=== PATIENT | female | born 1990 | race Two or more races ===

== ENCOUNTER 2017-10-19 18:16 | Emergency (ER) | payer OTHER ==
[2017-10-19 18:26] VITALS: BP 167/91; RESP 20; O2SAT 98
[2017-10-19 18:45] LABS: HCG,QUALITATIVE URINE NEGATIVE (NEGATIVE)
[2017-10-19] MEDS ORDERED: cefTRIAXone (Rocephin) 250 mg Inj IM STA (18:50)
[2017-10-19 18:52] LABS: SQUAMOUS EPITHIAL 1 /hpf (0-5); URINE BACTERIA OCC (<OCC); URINE BILIRUBIN NEGATIVE (NEGATIVE); URINE BLOOD 2+ (NEGATIVE); URINE CLARITY Clear (Clear); URINE COLOR Yellow (YELLOW); URINE GLUCOSE (UA) NORMAL (Normal); URINE LEUKOCYTE ESTERASE TRACE Leu/uL (Negative); URINE NITRATE NEGATIVE (NEGATIVE); URINE PROTEIN 1+ mg/dL (NEGATIVE); URINE UROBILINOGEN NORMAL mg/dL (0.2-1.0)
--- NOTE | 2017-10-19 19:29 | C.PDOC ---
History Of Present Illness 27 year old female presents to the ER complaining of vaginal discomfort which has been present for the past 2 weeks. Patient states that she has whitish to yellowish discharge. She reports that the symptoms feel similar to the symptoms she experienced when she had chlamydia in the past. Patient is concerned for STDS. Time Seen by Provider: 10/19/17 18:36 Chief Complaint (Nursing): Female Genitourinary History Per: Patient History/Exam Limitations: no limitations Onset/Duration Of Symptoms: Days Current Symptoms Are (Timing): Still Present Severity: Moderate Past Medical History Reviewed: Historical Data, Nursing Documentation, Vital Signs Vital Signs: Last Vital Signs Temp 98 F 10/19/17 20:48 Pulse 78 10/19/17 20:48 Resp 20 10/19/17 20:48 BP 167/91 H 10/19/17 18:23 Pulse Ox 98 10/19/17 20:48 - Medical History PMH: No Chronic Diseases Surgical History: No Surg Hx Family History: States: No Known Family Hx - Social History Hx Alcohol Use: No Hx Substance Use: No Review Of Systems Except As Marked, All Systems Reviewed And Found Negative. Genitourinary: Positive for: Vaginal Discharge (whitish to yellowish discharge) Physical Exam - Physical Exam Appears: Non-toxic, No Acute Distress Skin: Normal Color, Warm Head: Atraumatic, Normacephalic Eye(s): bilateral: Normal Inspection Nose: Normal Oral Mucosa: Moist Neck: Supple Chest: Symmetrical Cardiovascular: Rhythm Regular Respiratory: Normal Breath Sounds, No Accessory Muscle Use, No Rales, No Rhonchi , No Wheezing Gastrointestinal/Abdominal: Normal Exam, Soft, No Tenderness Pelvic: Normal External Exam, Vaginal Discharge (white discharge), No Cervix Open, No Adnexal Tenderness, No Mass, Other (no smell) Extremity: Normal ROM Neurological/Psych: Oriented x3, Normal Speech, Normal Motor, Normal Sensation ED Course And Treatment O2 Sat by Pulse Oximetry: 98 (RA) Pulse Ox Interpretation: Normal Medical Decision Making Medical Decision Making: Plan: --HCG Test --Chlamydia/GC RNA --UA --Rocephin --Zithromax Disposition Counseled Patient/Family Regarding: Diagnosis, Need For Followup - Disposition Disposition: HOME/ ROUTINE Disposition Time: 19:28 Condition: GOOD Additional Instructions: You have been treated for STD with Rocephin and Zithromax Prescription for Flagyl sent to your pharmacy Your results will take 2-3 days and receive a call Prescriptions: metroNIDAZOLE [Flagyl] 500 mg PO BID #14 tab Instructions: Sexually Transmitted Diseases (ED), Vaginitis (ED) Forms: [facility], [facility] (Irish) - POA Present On Arrival: None - Clinical Impression Clinical Impression: Vaginitis - PA / [employer] / Resident Statement MD/DO has reviewed & agrees with the documentation as recorded. - Scribe Statement The provider has reviewed the documentation as recorded by the Joeibmoris Ledesma Provider Attestation All medical record entries made by the Anastasia were at my direction and personally dictated by me. I have reviewed the chart and agree that the record accurately reflects my personal performance of the history, physical exam, medical decision making, and the department course for this patient. I have also personally directed, reviewed, and agree with the discharge instructions and disposition.
[2017-10-19 20:49] VITALS: PULSE 78; TEMP 98
== END 2017-10-19 20:48 | disposition home or self-care (01) ==
LOC: C.ER 18:16
DX: N76.0 Acute vaginitis (principal)
CPT/HCPCS: 81001; 84703; 96372; 99283; J0696